=== PATIENT | male | born 1970 | race Hispanic/Latino ===

== ENCOUNTER 2017-12-17 20:40 | Emergency (ER) | payer BC ==
[~2017-12-17] VITALS: Ht 170.2 cm; Wt 76.8 kg
[~2017-12-17 20:40] MED LIST: CEPHALEXIN500 M1 PO; LORTAB 10 PO
[2017-12-17] MEDS ORDERED: B/P MED (20:59)
[2017-12-17 21:45] LABS: HEMOGLOBIN 14.2 g/dl (14.0-18.0); IMMATURE GRANULOCYTES 0.3 % (0.0-1.0); MEAN CELL VOLUME 90.5 fL CALC (80.0-100.0); MEAN CORPUSCULAR HGB 32.1 pG CALC (26.0-32.0); MEAN CORPUSCULAR HGB CONC 35.5 g/L CALC (32.0-36.0); NEUT# 4.32 thou/uL (1.82-7.42); RED BLOOD COUNT 4.42 mill/uL (4.70-6.10)
[2017-12-17 22:00] LABS: PROTHROMBIN TIME 10.7 SECONDS (9.0-12.5)
[2017-12-17 22:09] LABS: ALBUMIN 4.5 g/dL (3.2-5.0); ALKALINE PHOSPHATASE 98 u/l (38-126); AMYLASE 61 u/l (30-110); ANION GAP 18 (6-22 (CALC)); BILIRUBIN, TOTAL 0.6 mg/dL (0.0-1.4); BUN 13 mg/dL (9-20); BUN/CREATININE RATIO 16 (12-20 (CALC)); CARBON DIOXIDE 25 mmol/l (22-30); CHLORIDE 103 mmol/l (95-108); CREATININE 0.8 mg/dL (0.7-1.3); GFR > 60 ML/MIN (>=60 (CALC)); GFR FOR AFR.AMER. > 60 ML/MIN (>=60 (CALC)); LIPASE 88 u/l (23-300); POTASSIUM 4.2 mmol/l (3.5-5.1); SGOT/AST 28 u/l (17-59); SGPT/ALT 36 u/l (21-72); SODIUM 143 mmol/l (137-146); TOTAL PROTEIN 8.1 g/dL (6.3-8.2)
[2017-12-17 22:21] LABS: MYOGLOBIN 41 ng/mL (0 - 121)
[2017-12-17 23:07] LABS: URINE BILIRUBIN - DIPSTICK NEGATIVE (NEGATIVE); URINE BLOOD DIPSTICK NEGATIVE (NEGATIVE); URINE COLOR YELLOW; URINE GLUCOSE - DIPSTICK NEGATIVE (NEGATIVE); URINE KETONE NEGATIVE (NEGATIVE); URINE LEUK ESTERASE NEGATIVE (NEGATIVE); URINE NITRITE - DIPSTICK NEGATIVE (Negative); URINE PROTEIN - DIPSTICK NEGATIVE (NEG-TRACE); URINE SPECIFIC GRAVITY 1.015; URINE UROBILINOGEN - DIPSTICK 0.2 E.U./dL (0.2)
[2017-12-17 23:10] LABS: URINE CLARITY SL CLOUDY
[2017-12-18] MEDS ORDERED: ANUCORT-HC25 MG RE (00:37)
[2017-12-18 01:14] VITALS: BP 105/64
== END 2017-12-18 01:15 | disposition home or self-care (01) | DRG 392 ==
LOC: ED 20:40
PROVIDERS: Emergency Medicine
DX: R10.31 Right lower quadrant pain (principal); K64.8 Other hemorrhoids; I10 Essential (primary) hypertension

== ENCOUNTER 2018-10-22 09:43 | Emergency (ER) | payer BC ==
[~2018-10-22] VITALS: Ht 170.2 cm; Wt 77.3 kg
[~2018-10-22 09:43] MED LIST changes: +ANUCORT-HC25 MG RE; +B/P MED
[2018-10-22 10:33] VITALS: BP 136/95
== END 2018-10-22 10:36 | disposition home or self-care (01) | DRG 918 ==
LOC: ED 09:43
DX: T63.441A Toxic effect of venom of bees, accidental (unintentional), initial encounter (principal); R21 Rash and other nonspecific skin eruption; Y92.009 Unspecified place in unspecified non-institutional (private) residence as the place of occurrence of the external cause

== ENCOUNTER 2020-06-04 08:50 | Day surgery (SDC) | payer BC ==
[~2020-06-04 08:50] MED LIST changes: +ADVIL200 MG PO; +CIPROFLOXACN500 MG PO
[2020-06-04] MEDS ORDERED: PERCOCET 5/325M1 TAB PO (10:30)
[2020-06-04 11:05] VITALS: BP 108/71
== END 2020-06-04 11:25 | disposition home or self-care (01) | DRG 395 ==
LOC: ORM 08:50
PROVIDERS: ATTEND Surgery
PROC: 0H88XZZ Division of Buttock Skin, External Approach (ICD-10-PCS; principal; 2020-06-04)
DX: K60.3 Anal fistula (principal); I10 Essential (primary) hypertension; F17.210 Nicotine dependence, cigarettes, uncomplicated; Z20.828 Contact with and (suspected) exposure to other viral communicable diseases
CPT/HCPCS: C9290; J0131